=== PATIENT | male | born 1970 | race Caucasian/White ===

== ENCOUNTER 2018-09-27 09:20 | Emergency (ER) | payer OTHER ==
[~2018-09-27] VITALS: Ht 177.8 cm; Wt 107.0 kg
[~2018-09-27 09:20] MED LIST: KTR.5OP5 RIGHT EYE; TRAM50TA2 PO; VIGA RIGHT EYE
[2018-09-27 09:24] VITALS: Ht 177.8 cm; Wt 107.0 kg
[2018-09-27] MEDS ORDERED: IPRATROPIUM (NEB) 0.5 MG/2.5 ML AMP INH STA (09:40)
[2018-09-27] MEDS ORDERED: DEXAMETHASONE 10 MG/ML 1 ML INJ IV STA (09:40)
[2018-09-27] MEDS ORDERED: ALBUTEROL 0.5% (NEB) 2.5 MG/0.5 ML AMP INH STA (09:40)
[2018-09-27] MEDS ORDERED: SOD CHLORIDE 0.9% 1,000 ML IV STA (09:41)
[2018-09-27] MEDS ORDERED: FAMOTIDINE 20 MG TAB PO ONE (10:00)
[2018-09-27] MEDS ORDERED: DIPHENHYDRAMINE 25 MG CAP PO ONE (10:00)
--- NOTE | 2018-09-27 10:10 | ERD ---
ER Documentation Chief Complaint Chief Complaint LIP SWELLING , ONSET YESTERDAY 0800 AM , ABLE TO TALK IN FULL SENTENCES HPI 48-year-old man complains of upper and lower lip swelling since yesterday he states the swelling has remained constant and he did have a similar episode many years ago. He denies contact with any new medications, foods, or topicals. He denies CONCHITA I or ARB use. Patient denies chest pain or shortness of breath although he states he does have a history of asthma and continues to smoke. He denies calf or leg swelling, no chest pain, no vomiting or diarrhea, no headache or blurry vision. ROS All systems reviewed and are negative except as per history of present illness. Medications Home Meds Active Scripts Albuterol Sulfate* (Albuterol Sulfate* Neb) 0.083%-3 Ml Neb, 2.5 MG NEB Q4 PRN for SHORTNESS OF BREATH, #30 EA Prov:JOANN CEVALLOS MD 09/27/18 Budesonide* (Pulmicort* Flexhaler) 90 Mcg Aer.pow.ba, 2 PUFF INHALATION BID, #1 EA Prov:JOANN CEVALLOS MD 09/27/18 Albuterol Sulfate* (Proair HFA*) 8.5 Gm Hfa.aer.ad, 2 PUFF INH Q6H PRN for WHEEZING AND SOB, #1 INHALER Prov:JOANN CEVALLOS MD 09/27/18 Tramadol HCl (Tramadol HCl) 50 Mg Tab, 50 MG PO Q4 PRN for PAIN, #20 TAB Prov:HUGO RECINOS 03/20/15 Moxifloxacin Hcl* (Vigamox*) 0.5% - 3 Ml Opht, 1 DROP RIGHT EYE TID for 7 Days, EA Prov:HUGO RECINOS 03/20/15 Ketorolac Tromethamine Oph (Acular) 10 Ml Drops, 1 DROP RIGHT EYE QID for 3 Days, EA Prov:HUGO RECINOS 03/20/15 Allergies Allergies: Coded Allergies: No Known Allergy (Unverified , 03/20/15) PMhx/Soc COPD? History of Surgery: Yes (nose) Anesthesia Reaction: No Hx Neurological Disorder: No Hx Respiratory Disorders: No Hx Cardiac Disorders: Yes (htn) Hx Psychiatric Problems: No Hx Miscellaneous Medical Probl: No Hx Alcohol Use: Yes (occ) Hx Substance Use: No Hx Tobacco Use: Yes Smoking Status: Current every day smoker FmHx Family History: No diabetes Physical Exam Vitals Vital Signs Date Temp Pulse Resp B/P (MAP) Pulse Ox O2 O2 Flow FiO2 Time Delivery Rate 09/27/18 98.4 88 16 114/75 94 Room Air 12:30 (88) 09/27/18 86 20 93 21 12:01 09/27/18 98 20 91 21 09:50 09/27/18 Nasal 2 09:40 Cannula 09/27/18 98.1 102 18 140/79 96 09:24 (99) Physical Exam Const: No acute distress HEENT: Upper and lower lip edema, no submandibular induration Resp: Mild wheezing bilaterally, no crackles or stridor Cardio: Regular rate and rhythm, no murmurs Abd: Soft, non tender, non distended. Normal bowel sounds Skin: No petechiae or rashes Back: No midline or flank tenderness Ext: No cyanosis, or edema Neur: Awake and alert x3, no focal deficits or facial asymmetry Psych: Normal Mood and Affect Result Diagram: 09/27/18 1001 09/27/18 1001 Results 24 hrs Laboratory Tests Test 09/27/18 10:01 09/27/18 11:35 09/27/18 11:41 White Blood Count 5.2 10^3/ul Red Blood Count 5.24 10^6/ul Hemoglobin 15.7 g/dl Hematocrit 46.5 % Mean Corpuscular Volume 88.7 fl Mean Corpuscular Hemoglobin 30.0 pg Mean Corpuscular 33.8 g/dl Hemoglobin Concent Red Cell Distribution Width 13.3 % Platelet Count 200 10^3/UL Mean Platelet Volume 10.1 fl Immature Granulocytes % 0.200 % Neutrophils % 62.0 % Lymphocytes % 26.0 % Monocytes % 8.5 % Eosinophils % 2.7 % Basophils % 0.6 % Nucleated Red Blood Cells % 0.0 /100WBC Immature Granulocytes # 0.010 10^3/ul Neutrophils # 3.2 10^3/ul Lymphocytes # 1.4 10^3/ul Monocytes # 0.4 10^3/ul Eosinophils # 0.1 10^3/ul Basophils # 0.0 10^3/ul Nucleated Red Blood Cells # 0.0 10^3/ul Sodium Level 142 mmol/L Potassium Level 4.2 mmol/L Chloride Level 106 mmol/L Carbon Dioxide Level 28 mmol/L Anion Gap 8 Blood Urea Nitrogen 8 mg/dl Creatinine 0.92 mg/dl Est Glomerular Filtrat > 60 mL/min Rate mL/min Glucose Level 101 mg/dl Calcium Level 9.8 mg/dl Total Bilirubin 0.3 mg/dl Direct Bilirubin 0.00 mg/dl Indirect Bilirubin 0.3 mg/dl Aspartate Amino 34 IU/L Transf (AST/SGOT) Alanine 40 IU/L Aminotransferase (ALT/SGPT) Alkaline Phosphatase 57 IU/L Troponin I < 0.012 ng/ml Total Protein 7.9 g/dl Albumin 4.4 g/dl Globulin 3.50 g/dl Albumin/Globulin Ratio 1.25 Lipase 78 U/L Urine Color YELLOW Urine Clarity CLEAR Urine pH 6.0 Urine Specific Gary 1.008 Urine Ketones NEGATIVE mg/dL Urine Nitrite NEGATIVE mg/dL Urine Bilirubin NEGATIVE mg/dL Urine Urobilinogen NEGATIVE mg/dL Urine Leukocyte Esterase NEGATIVE Maryuri/ul Urine Microscopic RBC 5 /HPF Urine Microscopic WBC 0 /HPF Urine Mucus FEW /HPF Urine Hemoglobin 2+ mg/dL Urine Glucose NEGATIVE mg/dL Urine Total Protein NEGATIVE mg/dl Bedside Urine pH (LAB) 6.5 Bedside Urine Protein (LAB) Negative Bedside Urine Glucose (UA) Negative Bedside Urine Ketones (LAB) Negative Bedside Urine Blood 1+ Bedside Urine Nitrite (LAB) Negative Bedside Urine Leukocyte Esterase Negative (L Current Medications Medications Dose Sig/Manjeet Start Time Status Last (Trade) Ordered Route PRN Stop Time Admin Dose Reason Admin Albuterol 10 mg ONCE STAT 09/27/18 DC 09/27/18 (Proventil INH 09:40 09:49 0.5% (Neb)) 09/27/18 09:42 Ipratropium 1 mg ONCE STAT 09/27/18 DC 09/27/18 [place] INH 09:40 09:49 (Atrovent 09/27/18 09:42 0.02% (Neb)) 10 mg ONCE STAT 09/27/18 DC 09/27/18 Dexamethasone IV 09:40 09:50 (Decadron) 09/27/18 09:42 25 mg ONCE ONCE 09/27/18 DC 09/27/18 Diphenhydrami PO 10:00 09:50 ne HCl 09/27/18 10:01 (Benadryl) Famotidine 20 mg ONCE ONCE 09/27/18 DC 09/27/18 (Pepcid) PO 10:00 09:50 09/27/18 10:01 Sodium 1,000 ml @ Q1H STAT 09/27/18 DC 09/27/18 Chloride 1,000 mls/hr IV 09:41 09:51 09/27/18 10:40 Albuterol 5 mg ONCE STAT 09/27/18 DC 09/27/18 (Proventil HHN 11:51 12:00 0.083% (Neb)) 09/27/18 11:57 Procedures/MDM IV line was established patient was placed on child monitor rhythm strip revealed a sinus rhythm at about 80 bpm with upright P and T waves. Patient was afebrile EKG: Performed, read by me revealed a normal sinus rhythm 86 bpm, normal axis, narrow QRS complex, no concerning ST elevations or depressions noted Chest X-ray 1V Interpreted by me: Soft Tissue: No acute abnormalities Bones: No acute abnormalities Mediastinum/Cardiac Silhouette/Lungs: No acute abnormalities I administered 1 L normal saline IV, dexamethasone 10 mg IV, Benadryl and famotidine p.o., albuterol 10 mg via nebulizer, ipratropium 1 mg via nebulizer CBC and electrolytes were normal, liver function tests were normal, troponin was negative, urinalysis was negative for infection I suspect patient has a history of COPD because of his presentation today, history of smoking, and nebulizer machine he has at home. He requested a refill of his albuterol solution for home use and nebulizer machine. Patient's oxygen saturation on room air after above therapy was 96% and normal and patient felt much better. Differential diagnoses considered, included but not limited to acute coronary syndrome, pulmonary embolism, aortic dissection, abdominal aortic aneurysm, sepsis, stroke, meningitis, encephalitis, pneumonia, appendicitis, cholecystitis, bowel obstruction, pyelonephritis, nephrolithiasis, cystitis, as well as metabolic, hematologic, and electrolyte abnormalities. As well as abscess, cellulitis, fractures, and dislocations. Patient feels much better at this time, and vital signs are normal, symptoms have improved. I did give strict instructions to return to the ED if symptoms continue or worsen, patient will otherwise follow-up with primary care physician. Patient understood instructions and agreed to plan. Disclaimer: Inadvertent spelling and grammatical errors are likely due to EHR/dictation software use and do not reflect on the overall quality of patient care. Also, please note that the electronic time recorded on this note does not necessarily reflect the actual time of the patient encounter. Departure Diagnosis: Primary Impression: Allergic reaction Encounter type: initial encounter Qualified Codes: T78.40XA - Allergy, unspecified, initial encounter Additional Impressions: Angioedema Encounter type: initial encounter Qualified Codes: T78.3XXA - Angioneurotic edema, initial encounter COPD (chronic obstructive pulmonary disease) COPD type: COPD with acute exacerbation Qualified Codes: J44.1 - Chronic obstructive pulmonary disease with (acute) exacerbation Condition: JOANN Jin MD Sep 27, 2018 10:09
[2018-09-27] MEDS ORDERED: ALBU2.5V3 NEB (11:42)
[2018-09-27] MEDS ORDERED: ALBU8.5H8 INH (11:42)
[2018-09-27] MEDS ORDERED: PULM90 INHALATION (11:42)
[2018-09-27] MEDS ORDERED: ALBUTEROL 0.083% (NEB) 2.5 MG/3 ML AMP HHN STA (11:51)
[2018-09-27 12:30] VITALS: BP 114/75; PULSE 88; RESP 16
== END 2018-09-27 12:30 | disposition home or self-care (01) ==
LOC: E/R 09:20
DX: T78.3XXA Angioneurotic edema, initial encounter (principal); I10 Essential (primary) hypertension; F17.210 Nicotine dependence, cigarettes, uncomplicated; J44.1 Chronic obstructive pulmonary disease with (acute) exacerbation
CPT/HCPCS: 36415; 71045; 80053; 81001; 83690; 84484; 85025; 93005; 94644; 94664; 96374; J1100; J7030; Z7502; Z7610; 81003

== ENCOUNTER 2018-09-30 21:05 | Observation (INO) | payer OTHER ==
[~2018-09-30] VITALS: Ht 177.8 cm; Wt 111.2 kg
[~2018-09-30 21:05] MED LIST changes: +ALBU2.5V3 NEB; +ALBU8.5H8 INH; +PULM90 INHALATION
[2018-09-30] MEDS ORDERED: FAMOTIDINE 20 MG INJ IV STA (21:42)
[2018-09-30] MEDS ORDERED: EPINEPHrine 1 MG INJ IM STA (21:42)
[2018-09-30] MEDS ORDERED: SOD CHLORIDE 0.9% 0 ML IV ONE (21:42)
[2018-09-30] MEDS ORDERED: DIPHENHYDRAMINE 50 MG INJ IV STA (21:42)
[2018-09-30] MEDS ORDERED: METHYLPREDNISOLONE 125 MG INJ IV STA (21:42)
[2018-09-30] MEDS ORDERED: ACETAMINOPHEN 325 MG TAB PO PRN (23:00)
[2018-09-30] MEDS ORDERED: ONDANSETRON 4 MG INJ IV PRN (23:00)
--- NOTE | 2018-09-30 23:23 | ERD ---
ER Documentation Chief Complaint Chief Complaint L EYE, L TONGUE SWELLING HPI Patient is a 48-year-old male with no medical problems who presents with tongue swelling and left eye swelling. His symptoms started at 12 PM. He was seen here on September 27 for upper and lower lip swelling was treated and then discharged. He got better. The patient has no CONCHITA or arm use. The patient denies new foods, medications, or lotions. Upon review of old medical records this is the patient's third visit to the ER since 2014. The patient has never seen an mobile battery technician. ROS All systems reviewed and are negative except as per history of present illness. Medications Home Meds Active Scripts Albuterol Sulfate* (Albuterol Sulfate* Neb) 0.083%-3 Ml Neb, 2.5 MG NEB Q4 PRN for SHORTNESS OF BREATH, #30 EA Prov:JOANN CEVALLOS MD 09/27/18 Budesonide* (Pulmicort* Flexhaler) 90 Mcg Aer.pow.ba, 2 PUFF INHALATION BID, #1 EA Prov:JOANN CEVALLOS MD 09/27/18 Albuterol Sulfate* (Proair HFA*) 8.5 Gm Hfa.aer.ad, 2 PUFF INH Q6H PRN for WHEEZING AND SOB, #1 INHALER Prov:JOANN CEVALLOS MD 09/27/18 Tramadol HCl (Tramadol HCl) 50 Mg Tab, 50 MG PO Q4 PRN for PAIN, #20 TAB Prov:HUGO RECINOS 03/20/15 Moxifloxacin Hcl* (Vigamox*) 0.5% - 3 Ml Opht, 1 DROP RIGHT EYE TID for 7 Days, EA Prov:HUGO RECINOS 03/20/15 Ketorolac Tromethamine Oph (Acular) 10 Ml Drops, 1 DROP RIGHT EYE QID for 3 Days, EA Prov:HUGO RECINOS 03/20/15 Allergies Allergies: Coded Allergies: No Known Allergy (Unverified , 03/20/15) PMhx/Soc History of Surgery: Yes (nose) Anesthesia Reaction: No Hx Neurological Disorder: No Hx Respiratory Disorders: Yes (COPD) Hx Cardiac Disorders: Yes (htn) Hx Psychiatric Problems: No Hx Miscellaneous Medical Probl: No Hx Alcohol Use: Yes (occ) Hx Substance Use: No Hx Tobacco Use: Yes Smoking Status: Smoker,current status unk FmHx Family History: diabetes Physical Exam Vitals Vital Signs Date Temp Pulse Resp B/P (MAP) Pulse Ox O2 O2 Flow FiO2 Time Delivery Rate 09/30/18 98.8 89 18 169/87 96 21:08 (114) Physical Exam Const: No acute distress Head: Atraumatic Eyes: Mild swelling along the left eye ENT: Left-sided tongue swelling and the feeling of difficulty swallowing but no stridor Neck: Full range of motion. No meningismus. Resp: Clear to auscultation bilaterally Cardio: Regular rate and rhythm, no murmurs Abd: Soft, non tender, non distended. Normal bowel sounds Skin: No petechiae or rashes Back: No midline or flank tenderness Ext: No cyanosis, or edema Neur: Awake and alert Psych: Normal Mood and Affect Result Diagram: 09/30/18215409/30/182154 Results 24 hrs Laboratory Tests Test 09/30/18 21:55 White Blood Count 7.0 10^3/ul Red Blood Count 5.01 10^6/ul Hemoglobin 15.1 g/dl Hematocrit 44.5 % Mean Corpuscular Volume 88.8 fl Mean Corpuscular Hemoglobin 30.1 pg Mean Corpuscular Hemoglobin Concent 33.9 g/dl Red Cell Distribution Width 13.1 % Platelet Count 249 10^3/UL Mean Platelet Volume 9.6 fl Immature Granulocytes % 0.400 % Neutrophils % % Segmented Neutrophils % (Manual) 46 % Band Neutrophils % (Manual) 4 % Lymphocytes % % Lymphocytes % (Manual) 37 % Reactive Lymphocytes % (Manual) 3 % Monocytes % % Monocytes % (Manual) 4 % Eosinophils % % Eosinophils % (Manual) 5 % Basophils % % Metamyelocytes % (manual) 1 % Nucleated Red Blood Cells % 0.0 /100WBC Immature Granulocytes # 0.030 10^3/ul Neutrophils # 10^3/ul Neutrophils # (Manual) 3.2 10^3/ul Band Neutrophils # 0.2 10^3/ul Lymphocytes (Manual) 2.5 10^3/ul Lymphocytes # 10^3/ul Reactive Lymphocytes # 0.2 10^3/ul Monocytes # 10^3/ul Monocytes # (Manual) 0.2 10^3/ul Eosinophils # 10^3/ul Basophils # 10^3/ul Metamyelocytes # 0.0 10^3/ul Nucleated Red Blood Cells # 10^3/ul Platelet Estimate NORMAL Giant Platelets 2 % Poikilocytosis 1+ Tear Drop Cells 1+ Sodium Level 140 mmol/L Potassium Level 4.6 mmol/L Chloride Level 103 mmol/L Carbon Dioxide Level 28 mmol/L Anion Gap 9 Blood Urea Nitrogen 13 mg/dl Creatinine 0.80 mg/dl Est Glomerular Filtrat Rate mL/min > 60 mL/min Glucose Level 92 mg/dl Calcium Level 10.1 mg/dl Current Medications Medications Dose Sig/Manjeet Start Time Status Last (Trade) Ordered Route PRN Stop Time Admin Dose Reason Admin 25 mg ONCE STAT 09/30/18 DC 09/30/18 Diphenhydrami IV 21:42 22:00 ne HCl 09/30/18 21:45 (Benadryl) Epinephrine 0.3 mg ONCE STAT 09/30/18 DC 09/30/18 IM 21:42 21:59 (EPINEPHrine) 09/30/18 21:45 Famotidine 40 mg ONCE STAT 09/30/18 DC 09/30/18 (Pepcid Iv) IV 21:42 21:59 09/30/18 21:45 125 mg ONCE STAT 09/30/18 DC 09/30/18 Methylprednis IV 21:42 22:00 olone Sodium 09/30/18 21:45 Succinate (Solu-Medrol) Sodium 0 ml @ 0 Q0M ONCE 09/30/18 DC Chloride mls/hr IV 21:42 09/30/18 21:45 Ondansetron 4 mg BRIDGE ORDER 09/30/18 HCl (Zofran PRN IV 23:00 10/01/18 Inj) NAUSEA/VOMITI 22:59 NG 650 mg ER BRIDGE 09/30/18 Acetaminophen PRN PO 23:00 10/01/18 (Tylenol .MILD PAIN 22:59 Tab) 1-3 OR TEMP Procedures/MDM Smoking Cessation Therapy: Pt. was lectured for greater than 3 minutes on the health risks of continued smoking and the benefits of cessation. Patient is a 48-year-old male who presents with angioedema. I am concerned for tongue swelling at this time. I have done 3 different airway examinations and his tongue swelling has not worsened and I do not believe he requires intubation at this time. However since this is a second visit in the past 3 days I do believe that admission to the hospital for observation will be appropriate. He was given epinephrine, Benadryl, Pepcid, and Solu-Medrol. 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 I spoke with Dr. Carrillo who will admit to a medical surgical observation bed. Critical Care: Time: 35 minutes excluding all billable procedures. Treatments/Evaluations: Close monitoring and treatment of unstable vital signs, cardiorespiratory, and neurologic status, while maintaining tight balance of fluid, respiratory, and cardiac interventions. Departure Diagnosis: Primary Impression: Angioedema Encounter type: initial encounter Qualified Codes: T78.3XXA - Angioneuro tic edema, initial encounter Additional Impression: Swelling Condition: JB Jaimes MD Sep 30, 2018 23:23
[2018-10-01] MEDS: SOD CHLORIDE 0.9% 1,000 ML IV SCH ×2 (02:43→10:00)
[2018-10-01 02:54] VITALS: BP 128/93; PULSE 73; RESP 16
[2018-10-01 03:00] VITALS: Ht 177.8 cm; Wt 111.2 kg
[2018-10-01 08:30] VITALS: BP 134/87; PULSE 84; RESP 18
[2018-10-01] MEDS ORDERED: PRED20TA PO (08:59)
[2018-10-01] MEDS ORDERED: FEXO180T61 PO (08:59)
--- NOTE | 2018-10-01 09:00 | PDOCDIS ---
Discharge Instructions CONDITION [id number] Patient Condition: Pgbvd4d Good HOME CARE INSTRUCTIONS: [id number] Diet Instructions: [id number] Regular ACTIVITY: [id number] Activity Restrictions: [id number] No Restrictions FOLLOW UP/APPOINTMENTS Follow-up Plan pcp 1 week OTHER ORDERS: Other Orders: return to ER with recurrent tongue swelling or difficulty breathing POORNIMA SÁNCHEZ MD October 01, 2018 09:00
--- NOTE | 2018-10-01 10:32 | PDOCDIS ---
Discharge Instructions CONDITION [id number] Patient Condition: [id number] Good HOME CARE INSTRUCTIONS: Potki3Gf Diet Instructions: Nyedi0f Regular ACTIVITY: [id number] Activity Restrictions: Tnqav2c No Restrictions FOLLOW UP/APPOINTMENTS Follow-up Plan pcp 1 week credit balance specialist POORNIMA Ragsdale MD October 01, 2018 10:32
--- NOTE | 2018-10-01 11:19 | HP ---
DATE OF ADMISSION: 09/30/2018 CHIEF COMPLAINT: Swelling of the tongue and face. HISTORY OF PRESENT ILLNESS: A 48-year-old male with unremarkable past medical history who presented to emergency room with complaints of swelling of the tongue and left eye. The symptoms started aroun d noon. The patient was also seen in the emergency room 3 days prior to admission for upper and lowe r lip swelling. He denies any allergies to medications. He denies any food allergies. The patient reports having similar symptoms in the past. He denies any shortness of breath or difficulty swallow ing. PAST MEDICAL HISTORY: History of chronic asthma, compensated. MEDICATIONS PRIOR TO ADMISSION: 1. Albuterol. 2. Pulmicort. 3. Tramadol. 3. Moxifloxacin eyedrops. PHYSICAL EXAMINATION: GENERAL: Well-developed, well-nourished male who is in no apparent distress. VITAL SIGNS: Stable. He is afebrile. HEENT: There is left periorbital edema. No evidence of cellulitis. Oropharynx is clear. NECK: Supple. LUNGS: Clear to auscultation bilaterally. CARDIAC: Regular rate and rhythm. No murmurs, rubs or gallops. ABDOMEN: Soft, nontender, nondistended, normoactive bowel sounds. EXTREMITIES: No clubbing, cyanosis, or edema. NEUROLOGICAL: Nonfocal. ASSESSMENT: 1. This is a 48-year-old male with seasonal allergy and mild angioedema. 2. History of asthma, compensated. PLAN: 1. Place in med/surg observation. 2. Continue IV Solu-Medrol. 3. Discharge planning. Dictated By: POORNIMA SÁNCHEZ MD SK/BEAN Conf#: [id number] DID#: [id number] CC: POORNIMA SÁNCHEZ MD;*EndCC*
[2018-10-01] MEDS ORDERED: METHYLPREDNISOLONE 125 MG INJ IV SCH ×2 (14:00)
--- NOTE | 2018-10-02 02:56 | DS ---
DATE OF ADMISSION: 09/30/2018 DATE OF DISCHARGE: 10/01/2018 DISCHARGE DIAGNOSES: 1. Mild angioedema, most likely due to seasonal allergy. 2. Chronic asthma, compensated. HOSPITAL COURSE: A 48-year-old male returned to emergency room with complaint of tongue swelling and swelling around the left eye. The patient reported sneezing a lot in the last few days. He had sim ilar symptoms in the past. There was no evidence of shortness of breath or difficulty swallowing. T he patient received IV steroids and his condition improved. He is in a stable condition for discharg e. I prescribed prednisone 40 mg daily with taper over 1 week. I also prescribed Kimberly 180 mg beto ly. The patient will be referred to community engagement specialist for further evaluation. Dictated By: POORNIMA CHO/BEAN Conf#: [id number] DID#: [id number]
== END 2018-10-01 14:25 | disposition home or self-care (01) ==
LOC: E/R 21:05 → PP2 22:57
PROVIDERS: ADMIT Internal Medicine; ATTEND Internal Medicine
DX: T78.3XXA Angioneurotic edema, initial encounter (principal); J45.909 Unspecified asthma, uncomplicated; J44.9 Chronic obstructive pulmonary disease, unspecified; I10 Essential (primary) hypertension
CPT/HCPCS: 36415; 36430; 80048; 85025; 86850; 86900; 86901; 96372; 96374; 96375; J0171; J1200; J2930; J7030; J7040; P9059; Z7500; Z7502; Z7610; G0378